=== PATIENT | male | born 1990 | race Caucasian/White ===

== ENCOUNTER 2024-05-20 13:06 | Inpatient (IN) | payer OTHER ==
[2024-05-20 14:06] VITALS: BMI 24.7
[2024-05-20] MEDS ORDERED: hydrOXYzine PAMOATE 25 MG CAPSULE (FP) PO PRN (15:32)
[2024-05-20] MEDS ORDERED: IBUPROFEN 600 MG TABLET (FP) PO PRN (15:32)
[2024-05-20] MEDS ORDERED: DICYCLOMINE HCL 10 MG CAPSULE PO PRN (15:32)
[2024-05-20] MEDS ORDERED: MAGNESIUM HYDROX 2400MG/30ML ORAL SUSPENSION 30 ML CUP PO PRN (15:32)
[2024-05-20] MEDS ORDERED: BISMUTH SUBSALICYLATE 524 MG/30 ML PO PRN (15:32)
[2024-05-20] MEDS ORDERED: BENZONATATE 200 MG CAPSULE PO PRN (15:32)
[2024-05-20] MEDS ORDERED: IBUPROFEN 400 MG TABLET (FP) PO PRN (15:32)
[2024-05-20] MEDS ORDERED: POLYETHYLENE GLYCOL (HEALTHYLAX) 3350 17 GM PACKET PO PRN (15:32)
[2024-05-20] MEDS ORDERED: NALOXONE (NARCAN) HCL 4 MG/0.1 ML SPRAY NS PRN (15:32)
[2024-05-20] MEDS ORDERED: ACETAMINOPHEN 325 MG TABLET (FP) PO PRN (15:32)
[2024-05-20] MEDS ORDERED: METHOCARBAMOL 500 MG TABLET PO PRN (15:32)
[2024-05-20] MEDS ORDERED: LOPERAMIDE HCL 2 MG CAPSULE PO PRN (15:32)
[2024-05-20] MEDS ORDERED: BENZOCAINE/MENTHOL (CHLORASEPTIC ) LOZENGE MM PRN (15:32)
[2024-05-20] MEDS ORDERED: guaiFENesin 600 MG TABLET.ER (FP) PO PRN (15:32)
[2024-05-20] MEDS ORDERED: ALBUTEROL SO4 HFA INHALER IH PRN (16:15)
[2024-05-20] MEDS: NICOTINE POLACRILEX 2 MG GUM BUC PRN (17:51)
[2024-05-20] MEDS: NICOTINE 14 MG/24 HOURS TOPICAL PATCH TD SCH (17:54)
[2024-05-20] MEDS: MELATONIN 5 MG TABLETS PO SCH (21:51)
[2024-05-20] MEDS: THIAMINE 100 MG TABLET PO SCH (21:51)
[2024-05-21] MEDS ORDERED: methaDONE HCL 10 MG TABLET PO SCH (08:45)
[2024-05-21] MEDS: PRENATAL VITAMINS W/ FOLIC ACID TABLET (FP) PO SCH (10:04)
[2024-05-21 12:30] LABS: HEMATOCRIT 37.8 % (35.4-49); HEMOGLOBIN 12.5 GM/dL (11.7-16.9); MCH 30.2 pg (25.7-33.7); MCHC 32.9 g/dl (32.0-35.9); MEAN CELL VOLUME 91.8 fl (80-96); MEAN PLT VOLUME 7.2 fl (7.5-11.1); PLATELET COUNT 273 10^3/uL (134-434); RBC 4.12 M/mm3 (4.00-5.60); RDW 13.6 % (11.9-15.9); WHITE BLOOD COUNT 8.2 K/mm3 (4.0-10.0)
[2024-05-21 12:34] LABS: CHLORIDE 102 mmol/L (98-107); POTASSIUM 4.5 mmol/L (3.5-5.1); SODIUM 142 mmol/L (136-145)
[2024-05-21 12:39] LABS: BLOOD UREA NITROGEN 12.6 mg/dL (7-18); CALCIUM 9.1 mg/dL (8.5-10.1)
[2024-05-21 12:40] LABS: ALBUMIN 3.1 g/dl (3.4-5.0); ANION GAP 10 mmol/L (4-13); CO2 30 mmol/L (21-32); GLUCOSE,RANDOM 97 mg/dL (74-106)
[2024-05-21 12:41] LABS: CREATININE 0.8 mg/dL (0.55-1.3)
[2024-05-21 12:42] LABS: SGOT/AST 16 U/L (15-37); SGPT/ALT 24 U/L (13-61)
[2024-05-21 12:44] LABS: TOT PROT 5.7 g/dl (6.4-8.2)
[2024-05-21 12:45] LABS: ALK PHOS 90 U/L (45-117); BILIRUBIN,TOTAL 0.3 mg/dL (0.2-1)
[2024-05-21] MEDS: ONDANSETRON *ODT* 4 MG TABLET SL PRN (21:27)
[2024-05-21] MEDS: TRIMETHOBENZAMIDE HCL 200MG/2ML INJ IM ONE (21:54)
[2024-05-23] MEDS: MAG HYDROX/AL HYDROX/SIMETH 30 ML UNIT-DOSE CUP PO PRN (10:26)
[2024-05-24] MEDS: TRIMETHOBENZAMIDE HCL 200MG/2ML INJ IM ONE (23:18)
[2024-05-24] MEDS: hydrOXYzine PAMOATE 25 MG CAPSULE (FP) PO PRN (23:19)
[2024-05-26] MEDS ORDERED: methaDONE HCL 40 MG DISPERSABLE TABLET PO ONE (10:16)
[2024-05-28] MEDS: TRIMETHOBENZAMIDE HCL 200MG/2ML INJ IM ONE (04:48)
[2024-05-28] MEDS: methaDONE HCL 10 MG TABLET (FOR DETOX USE ONLY) PO ONE (13:20)
[2024-06-03] MEDS: TRIMETHOBENZAMIDE HCL 200MG/2ML INJ IM ONE (03:00)
[2024-06-04 06:57] VITALS: BP 118/77; PULSE 68; RESP 17; TEMP 97.7
[2024-06-04] MEDS: NALOXONE (NYS OPIOID OVERDOSE PROGRAM) 4 MG/0.1 ML SPRAY NS SCH (09:50)
== END 2024-06-04 09:55 | disposition home or self-care (01) | DRG 772 ==
LOC: YASAS 13:06 → Y3NR 17:17 → Y5N 05-21 12:38
PROVIDERS: ADMIT Psychiatry & Neurology Pain Medicine; ATTEND Psychiatry & Neurology Pain Medicine
PROC: HZ42ZZZ Group Counseling for Substance Abuse Treatment, Cognitive-Behavioral (ICD-10-PCS; principal; 2024-05-20)
DX: F11.20 Opioid dependence, uncomplicated (principal); F14.20 Cocaine dependence, uncomplicated; F10.20 Alcohol dependence, uncomplicated; F12.20 Cannabis dependence, uncomplicated; F17.210 Nicotine dependence, cigarettes, uncomplicated; F31.9 Bipolar disorder, unspecified; I10 Essential (primary) hypertension; J45.909 Unspecified asthma, uncomplicated; R11.2 Nausea with vomiting, unspecified
CPT/HCPCS: 36415; 71046-TC-FY; 80053; 80305; 80307; 85027; 86780; 87811; 93005; 93010; Q0162